=== PATIENT | female | born 1995 | race Caucasian/White ===

== ENCOUNTER → 2016-07-21 18:10 | Observation (INO) ==
--- NOTE | 2016-07-21 12:36 | OB/GYN History & Physical ---
Date of Encounter: 07/21/16 Time of Encounter: 12:32 Assessment and Plan (1) 39 weeks gestation of Current visit: Yes Status: Acute admit for labor evaluation (2) Back pain affecting in third trimester Current visit: Yes Status: Acute labor evaluation History of Present Illness Chief complaint: labor evaluation HPI: Ms. Hills is a 21 year old female at 39w2d presents to labor and delivery with c/o low back pain that started last night. Patient states pain was originally 10 min apart and now 5 min apart. Patient reports some discharge with spotting. Patient reports intercourse yesterday morning. Patient reports + FM and denies any urinary symptoms. Blood type: O Negative, Rubella: Non-immune , Hep B: Nonreactive, GBS: Negative. Past Med Surg Social Fam HX - Past Medical History Source: patient Medical history: no medical history Psychiatric history: no psych history - Past Surgical History Surgical History: no surgical history - Social History Smoking Status: Never smoker Smokeless Tobacco Status: No Alcohol use: none Drug use: none Current living situation: Home - Independent Activity Level: Independent ambulation Recent Out of Country Travel Within the Last 8 Weeks: No Exposure or Possible Exposure to Illness During Travel: No Obstetrical History - Pregnancies : 1 Para: 0 Term: 0 : 0 Ab's: 0 Livin Review of System OB - Constitutional Constitutional ROS IM: no chills, no fever(s), no headache(s) - Cardiovascular Cardiovascular: no dyspnea, no lightheadedness, no palpitations, no pedal edema , no syncope - Respiratory Respiratory: no dyspnea - Gastrointestinal Gastrointestinal: cramping, no abdominal pain, no constipation, no diarrhea, no heartburn, no nausea, no vomiting - Genitourinary Genitourinary: vaginal discharge, no abnormal vaginal bleeding, no dysuria, no flank pain, no urinary frequency, no vaginal odor, no vaginal pruritis Exam - Constitutional Constitutional: well developed, well nourished, no acute distress, average body habitus - HEENT HEENT: Normocephaly, Mucus Membranes Moist - Neck Neck exam: full ROM, supple - Lungs Respiratory exam: CTAB - Cardiovascular Cardiovascular exam: RRR, +S1, +S2 - Abdomen Abdomen: Present: bowel sounds normal, gravid, non tender - Extremities Extremities exam: full ROM, normal capillary refill, normal inspection Deep Tendon Reflex Grade: 2+ Normal - Cervix Dilation: 3 Effacement: 80 Station: -1 - Uterus Uterus exam: Present: normal size, normal contour - Anus/Rectum Anus/Rectum: Present: normal perianal skin - Comments Comments: Speculum exam: negative pooling, negative nitrazine and negative Fern. FHT 125 bpm moderate variability +15x15 accels no decels noted. Cat. 1 tracing. No contractions noted. Results All other labs normal. - VTE Reasons for not Prescribing Prophylaxis: Treatment not Indicated - Low risk for VTE
--- NOTE | 2016-07-21 17:35 | Discharge Summary ---
Date of Encounter: 07/21/16 Time of Encounter: 17:35 - Discharge Diagnosis (1) 39 weeks gestation of Priority: Primary Status: Acute (2) Back pain affecting in third trimester Priority: Secondary Status: Acute Comments: false labor Date of admission: 07/21/16 12:14 Discharging clinician: Hannah Hartley Anticipated date of discharge: 07/21/16 - Patient Status Disposition: Home, Self-Care Condition: Good Functional capacity at discharge: independent ambulation - Discharge Instructions Follow Up With: Hannah Hartley CNM [Non-Partnered Physician] - - Diet and Activity Activity: increase activity as tolerated Diet: regular diet 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 CAt. 1 tracing. Contractions are irregular. - VTE Reasons for not Prescribing Prophylaxis: Treatment not Indicated - Low risk for VTE
[~2016-07-21 18:10] MED LIST: Famotidine 20 MG/2 ML VIAL IVP PRN; Naloxone 0.4 MG/ML INJ IVP PRN; Ondansetron 4 MG/2 ML VIAL IVP PRN; Ringers Solution, Lactated 1,000 ML IVC SCH
== END | disposition home or self-care (01) ==
LOC: 1NENULAB
PROVIDERS: ADMIT Advanced Practice Midwife; ATTEND Advanced Practice Midwife

== ENCOUNTER → 2016-07-23 00:13 | Observation (INO) ==
--- NOTE | 2016-07-24 06:07 | Discharge Summary ---
Date of Encounter: 07/23/16 Time of Encounter: 00:03 - Discharge Diagnosis (1) False labor Priority: Primary Status: Acute Comments: No cervical change after 4-5 hours reactive nst (2) 39 weeks gestation of Priority: Secondary Status: Acute Comments: admitted for observation - Discharge Medications Home Medications: Ferrous Sulfate [Iron] 325 mg PO DAILY 07/22/16 [History] Allergies/Adverse Reactions: Allergies No Known Allergies Allergy (Verified 07/22/16 19:43) Date of admission: 07/22/16 19:06 Discharging clinician: Hannah Hartley Anticipated date of discharge: 07/23/16 - Patient Status Disposition: Home, Self-Care Condition: Good - Discharge Instructions Follow Up With: Hannah Hartley CNM [Non-Partnered Physician] - Additional Instructions: LABOR AND DELIVERY DISCHARGE INSTRUCTIONS Signs and Symptoms to be Reported to your Doctor Immediately: * Sudden gush, continuous or intermittent lead of fluid from vagina (note the time of gush and color of fluid) * Onset of bright red vaginal bleeding with or without pain (if you had a vaginal exam during this visit you may notice some dark red spotting. This is normal.) * Contractions that are 5 minutes apart (from the beginning of one contraction to the beginning of the next) and last 45-60 seonds; contractions that you can no longer walk, talk or laugh through. * A change in the baby's activity. This could be an increase or decrease in activity. * Severe headache which does not go away with tylenol. * Sudden swelling in the face, hands, arms and/or legs. * Upper abdominal pain - sometimes associated with heartburn or nausea and is not relieved by Maalox, Mylanta or Tums. * Kick Counts __ One hour after a meal, lay down on one side in a quiet place. Count the number of time the baby moves during an hour. 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 Patient denies LOF and reports FM. Time Attestation: Total time spent providing and/or coordinating discharge services: Time Spent: Less than 30 minutes Exam - Other Additional findings: Patient was assessed and evaluated by RN.
== END | disposition home or self-care (01) ==
LOC: 1NENULAB
PROVIDERS: ADMIT Obstetrics & Gynecology; ATTEND Obstetrics & Gynecology

== ENCOUNTER 2016-07-24 08:24 | Inpatient (IN) ==
[~2016-07-24 08:24] MED LIST changes: +*HR* Nalbuphine 20 MG/ML AMPUL IVP PRN; -Ringers Solution, Lactated 1,000 ML IVC SCH
[2016-07-24 08:25] LABS: Basophils # 0.1 K/mcL (0.0-0.2); Basophils % 0.3 %; Eosinophils # 0.1 K/mcL (0.0-0.6); Eosinophils % 0.7 %; Hematocrit 31.2 % (35.3-44.9); Hemoglobin 10.2 g/dL (11.5-15.4); Immature Granulocytes % 0.9 % (0-4); Lymphocytes # 1.6 K/mcL (0.6-4.6); Lymphocytes % 9.8 %; Mean Corpuscular HGB Conc 32.7 g/dL (31.6-35.5); Mean Corpuscular Hemoglobin 26.8 pg (28.0-33.3); Mean Corpuscular Volume 81.9 fL (83.0-100.0); Mean Platelet Volume 10.1 fL (9.4-12.4); Monocytes # 0.8 K/mcL (0.0-1.3); Monocytes % 4.9 %; Neutrophils # 13.5 K/mcL (1.6-8.9); Platelet Count 355 K/mcL (140-400); Red Blood Count 3.81 M/mcL (3.82-4.97); Red Cell Distribution Width 15.6 % (11.5-14.5); Segmented Neutrophils % 83.4 %
[2016-07-24] MEDS ORDERED: Epidural Premix (fent/bupiv) 110 ML EP ONE ×2 (08:52→13:47)
[2016-07-24] MEDS ORDERED: *HR* Phenylephrine 10 MG/ML VIAL ONE (09:35)
--- NOTE | 2016-07-24 10:10 | Anesthesia Procedures ---
Date of Encounter: 07/24/16 Time of Encounter: 09:51 Procedures: Anesthesia - Epidural/Spinal Patient ID/Chart reviewed: Yes Patient examined: Yes OB Eval: Gestational age: 39 OB Eval: : 1 OB Eval: Dilated at (cm): 6 OB Eval: Contractions: Non-stressed pattern Consent Obtained: Yes Supplemental Oxygen: None/Room Air Site Prep: Aseptic Technique, Sterile prep and drape, 0.5% Chlorhexidine/Alcohol Patient position: upright Local Anesthetic: Lidocaine 1% Amount of Local Anesthetic used: 2 Touhy Needle Gauge: 18 Touhy Needle Depth (cm): 6 Catheter Depth at Skin (cm): 11 Test Dose (1.5% Lido + Epi): Volume given (mls): 3 Test Dose Result: Negative Loading Dose: Other: 12ml from solution Loading Dose Administered: Thru Catheter Infusion Med: 0.125% Bupivacaine w/ 2 mcg/ml Fentanyl Infusion Rate (mls/hr): [address]: Tegaderm, Tape Interspace Used: L3-L4 Loss of Resistance (MARIA LUISA): Yes (saline) Blood: No CSF: No Paresthesia: No Vitals + FHT's: vss though out, FHR stable per rn's
--- NOTE | 2016-07-24 10:13 | Anesthesia Evaluation PreOp ---
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 Other Medical History: Denies Any Significant HX, Other (chronic back pain, denies positional dependent or radiculapathy, no therapy, described as fall as child.) Anesthesia History: No Prior Anesthetic Complications, Past Anesthesia (no prior no Family hx.) Alcohol Use: none Drug use: none Medications and Allergies Ferrous Sulfate [Iron] 325 mg PO DAILY 07/22/16 [History] Multivitamin [Flintstones] 1 tab PO DAILY 07/24/16 [History] Allergies No Known Allergies Allergy (Verified 07/22/16 19:43) Anesthesia Results - Labs 07/24/16 08:10 Anesthesia Exam - HEENT Pupil (Motor): Pupils equal Mallampati: II Teeth: Normal Oral Opening: Greater than 3 - BAG MACHINE SET UP OPERATOR LOC: Oriented 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
[2016-07-24] MEDS ORDERED: Ringers Solution, Lactated 1,000 ML ONE (11:52)
--- NOTE | 2016-07-24 12:07 | OB/GYN History & Physical ---
Date of Encounter: 07/24/16 Time of Encounter: 11:45 Assessment and Plan (1) Spontaneous onset of labor Current visit: Yes Status: Acute Admit for labor. Pt has received an epidural for pain. AROM for moderate amount clear fluid at this time. Anticipate . (2) Rubella non-immune status, antepartum Current visit: Yes Status: Acute offer vaccine (3) 39 weeks gestation of Current visit: No Status: Acute History of Present Illness Chief complaint: labor HPI: Ms. Hills is a 21 year old female presenting at 39 weeks 5 days with c/ o contractions all weekend that have gotten stronger since early this am. Pt denies large gush of fluid or VB. She does report some increased discharge. Good FM. This has been uncomplicated. Blood type O negative. Rubella non-immune. Serologies and GBS negative. Past Med Surg Social Fam HX - Past Medical History Medical history: no medical history Psychiatric history: anxiety - Past Surgical History Surgical History: no surgical history - Social History Smoking Status: Former smoker Smokeless Tobacco Status: No Alcohol use: none Drug use: none - Family History Mother History Unknown: Yes Adopted: No Family Member Ethnicity: Non- Living Status: Still Living Hx Family Cardiac Disorders: Yes (heart murmur) Hx Family Respiratory Disorders: No Hx Family Cancer: No Hx Family GI Disorders: No Hx Family Genitourinary Disorders: No Hx Family Endocrine Disorder: No Hx Family Musculoskeletal Disorders: No Hx Family Neuromuscular Disorders: No Hx Family Neurologic Disorders: No Hx Family HEENT Disorders: No Hx Family Autoimmune Disorders: No Hx Family Reproductive Disorders: No Hx Family Psychosocial Disorders: No Hx Family Medical Disorders: No Obstetrical History - Pregnancies : 1 Medications and Allergies Ferrous Sulfate [Iron] 325 mg PO DAILY 07/22/16 [History] Multivitamin [Flintstones] 1 tab PO DAILY 07/24/16 [History] Allergies No Known Allergies Allergy (Verified 07/22/16 19:43) Review of System OB All systems PM: reviewed and no additional remarkable complaints except as stated Exam - Constitutional Constitutional: well developed, well nourished, no acute distress - HEENT HEENT: Mucus Membranes Moist - Lungs Respiratory exam: CTAB - Cardiovascular Cardiovascular exam: RRR - Abdomen Abdomen: Present: gravid, non tender - Extremities Extremities exam: normal inspection, pedal edema (mild edema bilaterally) - Vulva Vulva: bilateral: normal - Vagina Vagina: Present: normal moisture - Cervix Dilation: 8 Effacement: 100 Station: -1 - Uterus Uterus exam: Present: normal size - Anus/Rectum Anus/Rectum: Present: normal perianal skin Results Result Diagrams: 07/24/16 08:10 Abnormal lab results WBC 16.2 K/mcL (4.3-11.1) H 07/24/16 08:10 RBC 3.81 M/mcL (3.82-4.97) L 07/24/16 08:10 Hgb 10.2 g/dL (11.5-15.4) L 07/24/16 08:10 Hct 31.2 % (35.3-44.9) L 07/24/16 08:10 MCV 81.9 fL (83.0-100.0) L 07/24/16 08:10 MCH 26.8 pg (28.0-33.3) L 07/24/16 08:10 RDW 15.6 % (11.5-14.5) H 07/24/16 08:10 Neutrophils # 13.5 K/mcL (1.6-8.9) H 07/24/16 08:10 All other labs normal. - VTE Reasons for not Prescribing Prophylaxis: Treatment not Indicated - Low risk for VTE
[2016-07-24] MEDS ORDERED: Oxytocin 20 units/ LR 1000 mL 20 UNIT/1,000 ML BAG IVC ONE ×2 (15:29→18:32)
[2016-07-24] MEDS ORDERED: Lidocaine/EPI 1:200k 2% PF 20 ML VIAL ONE (17:01)
[2016-07-24] MEDS ORDERED: *HR* FentaNYL (PF) 100 MCG/2 ML VIAL ONE (17:02)
[2016-07-24] MEDS ORDERED: Lidocaine 1% 20 ML MDV ONE (17:24)
--- NOTE | 2016-07-24 18:12 | OB/GYN Procedure Note ---
Delivery - Delivery Date: 07/24/16 Provider: Marina Callaway) Intrapartum events: none Delivery induction: none Delivery augmentation: rupture of membranes Delivery monitor: external FHT, external uterine Anesthesia: epidural Estimated Blood Loss: 200 - (s) A Delivery Date: 07/24/16 Delivery Time: 17:15 Presentation: face or brow Position: OP Route of delivery: Gender: Male Viability: Viable Pounds: 7 Ounces: 1 at 1 minute: 8 at 5 mins: 9 Shoulder Dystocia: not encountered Specimens collected: cord blood Placenta: spontaneous Cord: 3 umbilical vessels - Repair Episiotomy: none Laceration Description: Perineal - 2nd Degree, Labial (bilateral labial) - Complications Delivery complications: none Delivery comments: 21 year-old presenting at 39 weeks with regular contractions. She received an epidural for pain and progressed normally to complete dilation. Pt pushed for about 40 minutes with some descent but pt unable to feel urge to push. Epidural rate decreased from 16 to 14 and pt positioned right lateral with peanut ball to allow passive descent. Pt then began pushing again and brow presentation with OP position noted. Variable decelerations present with pushing. Dr Jack called to assess pt. Pt pushing effectively at this time to for viable male weighing 7lbs 1oz with apgars 8/9. After pulsations stopped the cord was clamped and cut and the placenta delivered spontaneous and intact. Care was then turned over to Dr. Jack for perineal and labial repair. - Disposition Mom disposition: stable in LDR [place] disposition: stable in LDR
[2016-07-24] MEDS ORDERED: Acetaminophen 325 MG TABLET PO PRN (19:36)
[2016-07-24] MEDS ORDERED: Benzocaine/Menthol 56 GM AEROSOL SPRAY TP PRN (19:36)
[2016-07-24] MEDS ORDERED: Ibuprofen 600 MG TABLET PO PRN (19:36)
[2016-07-24] MEDS ORDERED: Measles/Mumps/Rubella Vacc 0.5 ML VIAL SQ PRN (19:36)
[2016-07-24] MEDS ORDERED: Oxytocin 20 units/ LR 1000 mL 20 UNIT/1,000 ML BAG IVC SCH (19:36)
[2016-07-24] MEDS ORDERED: Lanolin 7 G OINT...G. TP PRN (19:36)
[2016-07-24] MEDS ORDERED: Rho Immune Globulin 1,500 UNIT SYRINGE IM PRN (19:36)
[2016-07-24] MEDS ORDERED: *HR* HYDROcodone/Acet 5/325 mg TABLET PO PRN (19:36)
[2016-07-25 08:53] VITALS: BP 122/77
[2016-07-25] MEDS ORDERED: Prenatal Vit/FA 1 EACH TABLET PO SCH (09:00)
--- NOTE | 2016-07-25 09:46 | Discharge Summary ---
Date of Encounter: 07/25/16 Time of Encounter: 09:41 - Discharge Diagnosis (1) Vaginal delivery Priority: Primary Status: Acute Comments: Pt meeting all milestones. States feel well pain well managed on po pain medication desires discharge. - Discharge Medications Prescriptions: Ibuprofen [Motrin] 600 mg PO Q6HR PRN #60 tablet PRN Reason: Cramping Docusate [Colace] 100 mg PO BID #60 capsule Ferrous Sulfate 325 mg PO DAILY #60 tablet Home Medications: Ferrous Sulfate [Iron] 325 mg PO DAILY 07/22/16 [History] Multivitamin [Flintstones] 1 tab PO DAILY 07/24/16 [History] Acetaminophen [Tylenol] 650 mg PO Q6HR PRN #0 tablet 07/25/16 [Rx] Benzocaine/Menthol [place] [Dermoplast [place]] 1 appl TP QID PRN #0 aerosol [Rx] Docusate [Colace] 100 mg PO BID #60 capsule 07/25/16 [Rx] Ferrous Sulfate 325 mg PO DAILY #60 tablet 07/25/16 [Rx] Ibuprofen [Motrin] 600 mg PO Q6HR PRN #60 tablet 07/25/16 [Rx] Lanolin [Lansinoh] 1 appl TP Q4HR PRN #0 oint...g. 07/25/16 [Rx] Allergies/Adverse Reactions: Allergies No Known Allergies Allergy (Verified 07/22/16 19:43) Data Procedures and tests throughout hospitalization: Laboratory Tests 07/24/16 08:10 WBC 16.2 H RBC 3.81 L Hgb 10.2 L Hct 31.2 L MCV 81.9 L MCH 26.8 L MCHC 32.7 RDW 15.6 H Plt Count 355 MPV 10.1 Immature Gran % 0.9 Seg Neutrophils % 83.4 Lymphocytes % 9.8 Monocytes % 4.9 Eosinophils % 0.7 Basophils % 0.3 Neutrophils # 13.5 H Lymphocytes # 1.6 Monocytes # 0.8 Eosinophils # 0.1 Basophils # 0.1 Date of admission: 07/24/16 08:24 Consults: 07/24/16 19:36 Consult to City Superintendent [CONS] Routine Comment: Vaginal delivery, consult needed Discharging clinician: Emelia Maki Anticipated date of discharge: 07/25/16 - Patient Status Disposition: Home, Self-Care Condition: Good Functional capacity at discharge: independent ambulation Overall status at discharge: patient is back to baseline - Discharge Instructions - Diet and Activity Activity: resume usual activities as tolerated Diet: regular diet Hospital Course Reason for admission: active labor Delivery: Episiotomy: none Laceration: 2nd degree Other procedures: none complications: none Discharge diagnosis: IUP at term delivered baby: male Hospital course: Patient Name: Elicia Hills Date of : 89 Patient Status: Inpatient Attending Provider: Emelia Maki Date: 07/24/16 18:03 Initialization Date: 07/24/16 18:03 Addendum entered and electronically signed by Adalberto Jack DO 18:26: I was asked to attend delivery due to possible brow presentation. Patient was evaluated and was noted to be a brow presentation the patient seemed to be pushing appropriately. She was having some deep decelerations but did return to baseline in between contractions. Patient was allowed to continue pushing became a presentation but was doing well and was allowed to deliver vaginally without complications. It was noted after the delivery patient did have some lacerations she had a second-degree perineal laceration bilateral labial lacerations was extended into sulcus tears bilaterally. On the left side the labia minora was both on the outside and inside. Using 30 Vicryls these lacerations with the reapproximated in running locking stitches. Once we had the labial lacerations repaired we then repaired the sulcus tears bilaterally and these connected to the labial lacerations. The second-degree was repaired with a 3-0 Vicryl in usual fashion. The medial laceration on the labia minora was then repaired with 0 Vicryl in usual fashion. Good hemostasis was noted post procedure uterus was explored with no retained placenta fundus was firm. All needles lap sponge counts were correct 3. Original Note: Delivery - Delivery Date: 07/24/16 Provider: Marina Callaway) Intrapartum events: none Delivery induction: none Delivery augmentation: rupture of membranes Delivery monitor: external FHT, external uterine Anesthesia: epidural Estimated Blood Loss: 200 - (s) Infant A Infant Delivery Date: 07/24/16 Delivery Time: 17:15 Presentation: face or brow Position: OP Route of delivery: Gender: Male Viability: Viable Pounds: 7 Ounces: 1 at 1 minute: 8 at 5 mins: 9 Shoulder Dystocia: not encountered Specimens collected: cord blood Placenta: spontaneous Cord: 3 umbilical vessels - Repair Episiotomy: none Laceration Description: Perineal - 2nd Degree, Labial (bilateral labial) - Complications Delivery complications: none Delivery comments: 21 year-old presenting at 39 weeks with regular contractions. She received an epidural for pain and progressed normally to complete dilation. Pt pushed for about 40 minutes with some descent but pt unable to feel urge to push. Epidural rate decreased from 16 to 14 and pt positioned right lateral with peanut ball to allow passive descent. Pt then began pushing again and brow presentation with OP position noted. Variable decelerations present with pushing. Dr Jack called to assess pt. Pt pushing effectively at this time to for viable male weighing 7lbs 1oz with apgars 8/9. After pulsations stopped the cord was clamped and cut and the placenta delivered spontaneous and intact. Care was then turned over to Dr. Jack for perineal and labial repair. - Disposition Mom disposition: stable in PP and appropriate for discharge Time Attestation: Total time spent providing and/or coordinating discharge services: Time Spent: Less than 30 minutes Exam - Constitutional Vitals: Temp Pulse Resp BP Pulse Ox 97.8 F 98 16 122/77 98 07/25/16 08:36 07/25/16 08:36 07/25/16 08:36 07/25/16 08:36 07/25/16 08:36 General appearance IM: A&O X 3 - Respiratory Respiratory exam: Present: CTAB - Cardiovascular Cardiovascular exam IM: Present: RRR - GI/Abdominal GI/Abdominal exam IM: soft - Uterine Tone: Firm - Extremities Exam Extremities exam IM: Present: normal capillary refill, normal inspection - Neurological Exam Neurological exam: normal gait, oriented X3 - Psychiatric Additional comments: Reports good mood.
== END 2016-07-25 19:10 | disposition home or self-care (01) | DRG 560 ==
LOC: 1NENULAB → 1NENUOBS 20:50
PROVIDERS: ADMIT Advanced Practice Midwife; ATTEND Advanced Practice Midwife